=== PATIENT | female | born 1975 | race Caucasian/White ===

== ENCOUNTER 2020-03-23 20:53 | Inpatient (IN) ==
[2020-03-23] MEDS ORDERED: Acetaminophen 325 MG TABLET PO PRN (23:14)
[2020-03-23] MEDS ORDERED: Ondansetron 4 MG/2 ML VIAL IVP PRN (23:14)
[2020-03-23] MEDS ORDERED: Naloxone 0.4 MG/ML INJ IVP PRN (23:14)
[2020-03-24] MEDS ORDERED: Albuterol 2.5 MG/3 ML NEBULIZER IH PRN (00:18)
[2020-03-24 01:33] LABS: Basophils # 0.1 K/mcL (0.0-0.2); Basophils % 0.6 %; Eosinophils % 0.3 %; Hematocrit 42.7 % (35.3-44.9); Hemoglobin 13.8 g/dL (11.5-15.4); Immature Granulocytes % 0.5 % (0-4); Lymphocytes # 1.6 K/mcL (0.6-4.6); Mean Corpuscular HGB Conc 32.3 g/dL (31.6-35.5); Mean Corpuscular Hemoglobin 28.2 pg (28.0-33.3); Mean Corpuscular Volume 87.3 fL (83.0-100.0); Mean Platelet Volume 9.6 fL (9.4-12.4); Monocytes % 0.3 %; Neutrophils # 12.6 K/mcL (1.6-8.9); Platelet Count 387 K/mcL (140-400); Red Blood Count 4.89 M/mcL (3.82-4.97); Red Cell Distribution Width 12.8 % (11.5-14.5); Segmented Neutrophils % 87.3 %; White Blood Count 14.4 K/mcL (4.3-11.1)
[2020-03-24 01:44] LABS: Alanine Aminotransferase 62 Units/L (7-52); Albumin 4.3 g/dL (3.5-5.7); Albumin/Globulin Ratio 1.3 (1.1-2.2); Alkaline Phosphatase 112 Units/L (34-104); Aspartate Amino Transferase 40 Units/L (13-39); BUN/Creatinine Ratio 17 (6-26); Bilirubin,Total 0.6 mg/dL (0.3-1.0); Blood Urea Nitrogen 11 mg/dL (6-20); Calcium 9.7 mg/dL (8.6-10.3); Carbon Dioxide 18 mEq/L (23-29); Chloride 102 mEq/L (98-107); Globulin 3.3 g/dL (2.4-3.5); Glucose 213 mg/dL (70-105); Magnesium 1.6 mg/dL (1.6-2.6); Osmolality,Calculated 284 (280-300); Phosphorous 2.2 mg/dL (2.7-4.5); Potassium 3.6 mEq/L (3.5-5.1); Sodium 134 mEq/L (136-145); Total Protein 7.6 g/dL (6.4-8.9); Troponin I < 0.03 ng/mL (< 0.04); eGFR For African Americans > 60 (> 60); eGFR For Non-African Americans > 60 (> 60)
[2020-03-24 02:16] LABS: Platelet Estimate Normal (Normal); Reactive Lymphocytes Present (Not Present); Smudge Cells Present (Not Present)
[2020-03-24] MEDS: Ipratropium/Albuterol Neb 3 ML IH SCH ×2 (04:10→04:12)
[2020-03-24] MEDS: *HR* Heparin 5,000 UNIT/ML VIAL SQ SCH ×2 (05:18→17:16)
[2020-03-24] MEDS ORDERED: MethylPREDNISolone 40 MG/ML VIAL IVP SCH ×2 (06:00→18:00)
[2020-03-24] MEDS ORDERED: Azithromycin 500 MG in 0.9 % Sodium Chloride 250 ML IVPB SCH (08:00)
[2020-03-24] MEDS: cefTRIAXone 1,000 MG in Water for inj. (sterile) 10 ML IVP SCH (08:50)
[2020-03-24] MEDS ORDERED: Levalbuterol Neb 1.25 MG/3 ML ONE (10:33)
[2020-03-24] MEDS: Levalbuterol Neb 1.25 MG/3 ML IH SCH ×3 (10:49→22:53)
[2020-03-24 12:04] LABS: Adenovirus Not Detected (Not Detect); Bordetella Pertussis Not Detected (Not Detect); Chlamydophila pneumoniae Not Detected (Not Detect); Coronavirus 229E Not Detected (Not Detect); Coronavirus HKU1 Not Detected (Not Detect); Coronavirus NL63 Not Detected (Not Detect); Coronavirus OC43 Not Detected (Not Detect); Human Metapneumovirus Not Detected (Not Detect); Human Rhinovirus/Enterovirus Not Detected (Not Detect); Influenza A Subtype 2009 H1 Not Detected (Not Detect); Influenza B Not Detected (Not Detect); Mycoplasma pneumoniae Not Detected (Not Detect); Parainfluenza Virus 1 Not Detected (Not Detect); Parainfluenza Virus 2 Not Detected (Not Detect); Parainfluenza Virus 3 Not Detected (Not Detect); Parainfluenza Virus 4 Not Detected (Not Detect); Respiratory Syncytial Virus Not Detected (Not Detect); SARS-CoV-2 Not Detected (Not Detect)
[2020-03-24] MEDS: MethylPREDNISolone 40 MG/ML VIAL IVP SCH ×2 (12:54→22:31)
[2020-03-24] MEDS: Doxycycline 100 MG in 0.9 % Sodium Chloride Mini Bag 100 ML IVPB SCH (17:15)
[2020-03-25 02:50] LABS: Basophils % 0.1 %; Hematocrit 38.2 % (35.3-44.9); Hemoglobin 12.5 g/dL (11.5-15.4); Immature Granulocytes % 0.6 % (0-4); Lymphocytes # 1.9 K/mcL (0.6-4.6); Lymphocytes % 6.4 %; Mean Corpuscular HGB Conc 32.7 g/dL (31.6-35.5); Mean Corpuscular Volume 88.6 fL (83.0-100.0); Mean Platelet Volume 9.3 fL (9.4-12.4); Monocytes # 0.7 K/mcL (0.0-1.3); Monocytes % 2.4 %; Platelet Count 358 K/mcL (140-400); Red Blood Count 4.31 M/mcL (3.82-4.97); Red Cell Distribution Width 13.1 % (11.5-14.5); Segmented Neutrophils % 90.5 %
[2020-03-25 02:52] LABS: Neutrophils # 27.1 K/mcL (1.6-8.9); White Blood Count 29.9 K/mcL (4.3-11.1)
[2020-03-25 02:53] LABS: Estimated Average Glucose 126 mg/dl
[2020-03-25 03:05] LABS: Blood Urea Nitrogen 13 mg/dL (6-20); Calcium 9.5 mg/dL (8.6-10.3); Carbon Dioxide 21 mEq/L (23-29); Chloride 107 mEq/L (98-107); Glucose 145 mg/dL (70-105); Magnesium 1.8 mg/dL (1.6-2.6); Osmolality,Calculated 289 (280-300); Phosphorous 3.4 mg/dL (2.7-4.5); Sodium 138 mEq/L (136-145)
[2020-03-25 03:24] LABS: Platelet Estimate Normal (Normal)
[2020-03-25] MEDS: Levalbuterol Neb 1.25 MG/3 ML IH SCH ×4 (03:38→21:37)
[2020-03-25 04:06] LABS: BUN/Creatinine Ratio 19 (6-26); eGFR For African Americans > 60 (> 60); eGFR For Non-African Americans > 60 (> 60)
[2020-03-25] MEDS ORDERED: Doxycycline 100 MG VIAL ONE (04:52)
[2020-03-25] MEDS: Doxycycline 100 MG in 0.9 % Sodium Chloride Mini Bag 100 ML IVPB SCH ×2 (05:07→17:30)
[2020-03-25] MEDS: *HR* Heparin 5,000 UNIT/ML VIAL SQ SCH ×2 (05:08→17:36)
[2020-03-25] MEDS: MethylPREDNISolone 40 MG/ML VIAL IVP SCH ×2 (05:08→17:30)
[2020-03-25] MEDS: cefTRIAXone 1,000 MG in Water for inj. (sterile) 10 ML IVP SCH (08:58)
[2020-03-26 01:47] LABS: Basophils % 0.1 %; Hematocrit 36.9 % (35.3-44.9); Hemoglobin 11.8 g/dL (11.5-15.4); Immature Granulocytes % 1.1 % (0-4); Lymphocytes # 1.8 K/mcL (0.6-4.6); Lymphocytes % 7.6 %; Mean Corpuscular Hemoglobin 28.4 pg (28.0-33.3); Mean Corpuscular Volume 88.9 fL (83.0-100.0); Mean Platelet Volume 9.8 fL (9.4-12.4); Monocytes # 0.7 K/mcL (0.0-1.3); Monocytes % 2.9 %; Neutrophils # 20.9 K/mcL (1.6-8.9); Platelet Count 359 K/mcL (140-400); Red Blood Count 4.15 M/mcL (3.82-4.97); Red Cell Distribution Width 13.1 % (11.5-14.5); Segmented Neutrophils % 88.3 %; White Blood Count 23.7 K/mcL (4.3-11.1)
[2020-03-26 02:07] LABS: Alanine Aminotransferase 43 Units/L (7-52); Albumin 3.8 g/dL (3.5-5.7); Albumin/Globulin Ratio 1.3 (1.1-2.2); Alkaline Phosphatase 90 Units/L (34-104); Aspartate Amino Transferase 25 Units/L (13-39); BUN/Creatinine Ratio 29 (6-26); Bilirubin,Total 0.3 mg/dL (0.3-1.0); Blood Urea Nitrogen 20 mg/dL (6-20); Calcium 9.1 mg/dL (8.6-10.3); Carbon Dioxide 22 mEq/L (23-29); Chloride 106 mEq/L (98-107); Globulin 2.9 g/dL (2.4-3.5); Glucose 131 mg/dL (70-105); Magnesium 1.7 mg/dL (1.6-2.6); Osmolality,Calculated 292 (280-300); Phosphorous 3.6 mg/dL (2.7-4.5); Potassium 4.1 mEq/L (3.5-5.1); Sodium 139 mEq/L (136-145); Total Protein 6.7 g/dL (6.4-8.9); eGFR For African Americans > 60 (> 60); eGFR For Non-African Americans > 60 (> 60)
[2020-03-26] MEDS: Levalbuterol Neb 1.25 MG/3 ML IH SCH ×2 (03:29→10:11)
[2020-03-26] MEDS: Doxycycline 100 MG in 0.9 % Sodium Chloride Mini Bag 100 ML IVPB SCH (05:32)
[2020-03-26] MEDS: *HR* Heparin 5,000 UNIT/ML VIAL SQ SCH (05:32)
[2020-03-26] MEDS: MethylPREDNISolone 40 MG/ML VIAL IVP SCH (05:32)
[2020-03-26 10:56] VITALS: BP 124/74
== END 2020-03-26 14:15 | disposition home or self-care (01) | DRG 202 ==
LOC: 3BNU → SUATTDRO 22:12
PROVIDERS: ADMIT Internal Medicine; ATTEND Internal Medicine

== ENCOUNTER 2020-08-31 19:16 | Inpatient (IN) ==
[2020-08-31] MEDS ORDERED: Isovue-370 500 ML BOTTLE IVP ONE (20:14)
[2020-09-01 01:11] LABS: Hematocrit 40.7 % (35.3-44.9); Hemoglobin 13.1 g/dL (11.5-15.4); Mean Corpuscular HGB Conc 32.2 g/dL (31.6-35.5); Mean Corpuscular Hemoglobin 26.3 pg (28.0-33.3); Mean Corpuscular Volume 81.7 fL (83.0-100.0); Mean Platelet Volume 8.9 fL (9.4-12.4); Platelet Count 349 K/mcL (140-400); Red Blood Count 4.98 M/mcL (3.82-4.97); Red Cell Distribution Width 13.5 % (11.5-14.5); White Blood Count 11.3 K/mcL (4.3-11.1)
[2020-09-01] MEDS ORDERED: Naloxone 0.4 MG/ML INJ IVP PRN (01:17)
[2020-09-01] MEDS ORDERED: Acetaminophen 325 MG TABLET PO PRN (01:17)
[2020-09-01] MEDS ORDERED: Levalbuterol Neb 1.25 MG/3 ML ONE (01:22)
[2020-09-01 01:25] LABS: Estimated Average Glucose 123 mg/dl; Hemoglobin A1C 5.9 %
[2020-09-01] MEDS: Levalbuterol Neb 1.25 MG/3 ML IH SCH ×7 (01:25→23:17)
[2020-09-01 01:30] LABS: BUN/Creatinine Ratio 13 (6-26); Blood Urea Nitrogen 9 mg/dL (6-20); Calcium 9.4 mg/dL (8.6-10.3); Carbon Dioxide 18 mEq/L (23-29); Chloride 105 mEq/L (98-107); Chol/HDL Ratio 3.8 (0-4.9); Cholesterol 214 mg/dL (< 200); Glucose 168 mg/dL (70-105); HDL Cholesterol 57 mg/dL (40-59); Iron 31 mcg/dL (50-170); LDL Cholesterol,Calculated 144 mg/dL (< 100); Osmolality,Calculated 283 (280-300); Sodium 135 mEq/L (136-145); Triglycerides 67 mg/dL (< 150); Troponin I < 0.03 ng/mL (< 0.04); eGFR For African Americans > 60 (> 60); eGFR For Non-African Americans > 60 (> 60)
[2020-09-01] MEDS ORDERED: Perflutren Lipid Microsphere 1.3 ML in 0.9 % Sodium Chloride 8.7 ML IVP PRN (01:55)
[2020-09-01] MEDS ORDERED: Morphine Sulfate 2 MG/ML SYRINGE IVP PRN (01:56)
[2020-09-01] MEDS ORDERED: Nitroglycerin 0.4 MG TAB.SUBL SL PRN (01:56)
[2020-09-01 02:06] LABS: Ferritin < 8 ng/mL (10-120)
[2020-09-01] MEDS: Azithromycin 500 MG in 0.9 % Sodium Chloride 250 ML IVPB SCH (02:11)
[2020-09-01] MEDS ORDERED: D5% in Water 1,000 ML IVC PRN (02:16)
[2020-09-01] MEDS ORDERED: Dextrose Gel 15 GM/37.5 ML TUBE PO PRN ×2 (02:16)
[2020-09-01] MEDS ORDERED: *HR* Dextrose 50 % in Water (Vial) 50 ML VIAL IVP PRN (02:16)
[2020-09-01 02:23] LABS: Folate 22.1 ng/mL (3.0-16.0)
[2020-09-01] MEDS ORDERED: Aspirin Enteric Coated 325 MG Tablet PO ONE (02:27)
[2020-09-01 02:37] LABS: % Iron Saturation 5 % (15-50); Transferrin 419 mg/dL (203-362)
[2020-09-01] MEDS: *HR* Heparin 5,000 UNIT/ML VIAL SQ SCH ×3 (05:49→19:48)
[2020-09-01] MEDS ORDERED: Furosemide 20 MG/2 ML VIAL IVP ONE (07:00)
[2020-09-01] MEDS ORDERED: methylPREDNISolone 125 MG/2 ML VIAL IVP SCH (08:00)
[2020-09-01] MEDS: Insulin LISPRO 300 UNITS/3 ML VIAL SUBQ SCH ×4 (08:06→21:04)
[2020-09-01] MEDS: Venlafaxine XR (24 HR) 75 MG CAP.ER.24H PO SCH (08:23)
[2020-09-01] MEDS: Cholecalciferol (D-3) 1,000 UNIT (25MCG) TABLET PO SCH (08:23)
[2020-09-01] MEDS ORDERED: Iron Sucrose Complex 400 MG in 0.9 % Sodium Chloride 250 ML IVPB ONE (10:00)
[2020-09-01] MEDS ORDERED: traZODone 50 MG TABLET PO PRN (13:34)
[2020-09-01] MEDS: Venlafaxine XR (24 HR) 150 MG CAP.ER.24H PO SCH (13:56)
[2020-09-01] MEDS: Budesonide/Formoterol 160/4.5 1 PUFF INH IH SCH (19:28)
[2020-09-01] MEDS: methylPREDNISolone 125 MG/2 ML VIAL IVP SCH (19:45)
[2020-09-02] MEDS: Levalbuterol Neb 1.25 MG/3 ML IH SCH ×6 (02:57→23:39)
[2020-09-02] MEDS: Azithromycin 500 MG in 0.9 % Sodium Chloride 250 ML IVPB SCH (04:13)
[2020-09-02 05:42] LABS: Basophils % 0.1 %; Hematocrit 38.1 % (35.3-44.9)
[2020-09-02 05:44] LABS: Hemoglobin 11.7 g/dL (11.5-15.4); Immature Granulocytes % 0.7 % (0-4); Lymphocytes # 1.4 K/mcL (0.6-4.6); Lymphocytes % 4.9 %; Mean Corpuscular HGB Conc 30.7 g/dL (31.6-35.5); Mean Corpuscular Hemoglobin 25.8 pg (28.0-33.3); Mean Corpuscular Volume 84.1 fL (83.0-100.0); Mean Platelet Volume 9.5 fL (9.4-12.4); Monocytes # 1.1 K/mcL (0.0-1.3); Monocytes % 3.8 %; Neutrophils # 25.1 K/mcL (1.6-8.9); Platelet Count 369 K/mcL (140-400); Red Blood Count 4.53 M/mcL (3.82-4.97); Segmented Neutrophils % 90.5 %; White Blood Count 27.7 K/mcL (4.3-11.1)
[2020-09-02] MEDS: *HR* Heparin 5,000 UNIT/ML VIAL SQ SCH ×3 (05:45→21:15)
[2020-09-02 06:00] LABS: Magnesium 2.1 mg/dL (1.6-2.6); Phosphorous 3.5 mg/dL (2.7-4.5)
[2020-09-02 06:03] LABS: BUN/Creatinine Ratio 20 (6-26); Blood Urea Nitrogen 18 mg/dL (6-20); Calcium 9.1 mg/dL (8.6-10.3); Carbon Dioxide 22 mEq/L (23-29); Chloride 104 mEq/L (98-107); Glucose 202 mg/dL (70-105); Osmolality,Calculated 290 (280-300); Potassium 4.3 mEq/L (3.5-5.1); Sodium 136 mEq/L (136-145); eGFR For African Americans > 60 (> 60); eGFR For Non-African Americans > 60 (> 60)
[2020-09-02 06:22] LABS: Platelet Estimate Normal (Normal)
[2020-09-02] MEDS: Budesonide/Formoterol 160/4.5 1 PUFF INH IH SCH ×2 (07:44→19:47)
[2020-09-02] MEDS: Insulin LISPRO 300 UNITS/3 ML VIAL SUBQ SCH ×4 (08:48→21:07)
[2020-09-02] MEDS: Aspirin Enteric Coated 81 MG Tablet PO SCH (08:48)
[2020-09-02] MEDS: Venlafaxine XR (24 HR) 75 MG CAP.ER.24H PO SCH (08:48)
[2020-09-02] MEDS: Cholecalciferol (D-3) 1,000 UNIT (25MCG) TABLET PO SCH (08:48)
[2020-09-02] MEDS: methylPREDNISolone 125 MG/2 ML VIAL IVP SCH (08:49)
[2020-09-02] MEDS: Venlafaxine XR (24 HR) 150 MG CAP.ER.24H PO SCH (08:52)
[2020-09-03 01:16] LABS: Basophils % 0.1 %
[2020-09-03 01:18] LABS: Hematocrit 36.3 % (35.3-44.9); Hemoglobin 11.5 g/dL (11.5-15.4); Immature Granulocytes % 0.6 % (0-4); Lymphocytes % 10.7 %; Mean Corpuscular HGB Conc 31.7 g/dL (31.6-35.5); Mean Corpuscular Hemoglobin 26.3 pg (28.0-33.3); Mean Corpuscular Volume 82.9 fL (83.0-100.0); Mean Platelet Volume 9.6 fL (9.4-12.4); Monocytes # 1.4 K/mcL (0.0-1.3); Monocytes % 5.4 %; Neutrophils # 21.3 K/mcL (1.6-8.9); Platelet Count 365 K/mcL (140-400); Red Blood Count 4.38 M/mcL (3.82-4.97); Red Cell Distribution Width 14.2 % (11.5-14.5); Segmented Neutrophils % 83.2 %; White Blood Count 25.6 K/mcL (4.3-11.1)
[2020-09-03 01:37] LABS: BUN/Creatinine Ratio 25 (6-26); Blood Urea Nitrogen 20 mg/dL (6-20); Calcium 8.9 mg/dL (8.6-10.3); Carbon Dioxide 23 mEq/L (23-29); Chloride 105 mEq/L (98-107); Glucose 117 mg/dL (70-105); Magnesium 1.9 mg/dL (1.6-2.6); Osmolality,Calculated 288 (280-300); Phosphorous 2.7 mg/dL (2.7-4.5); Sodium 137 mEq/L (136-145); eGFR For African Americans > 60 (> 60); eGFR For Non-African Americans > 60 (> 60)
[2020-09-03 01:53] LABS: Lymphocytes # 2.7 K/mcL (0.6-4.6)
[2020-09-03] MEDS: Levalbuterol Neb 1.25 MG/3 ML IH SCH ×3 (04:13→11:27)
[2020-09-03] MEDS: Azithromycin 500 MG in 0.9 % Sodium Chloride 250 ML IVPB SCH (05:56)
[2020-09-03] MEDS: *HR* Heparin 5,000 UNIT/ML VIAL SQ SCH (05:58)
[2020-09-03] MEDS: Insulin LISPRO 300 UNITS/3 ML VIAL SUBQ SCH (07:05)
[2020-09-03] MEDS: Cholecalciferol (D-3) 1,000 UNIT (25MCG) TABLET PO SCH (07:24)
[2020-09-03] MEDS: Venlafaxine XR (24 HR) 75 MG CAP.ER.24H PO SCH (07:25)
[2020-09-03] MEDS: Aspirin Enteric Coated 81 MG Tablet PO SCH (07:25)
[2020-09-03] MEDS: Budesonide/Formoterol 160/4.5 1 PUFF INH IH SCH (07:28)
[2020-09-03] MEDS: Venlafaxine XR (24 HR) 150 MG CAP.ER.24H PO SCH (07:29)
[2020-09-03 07:35] VITALS: BP 128/78; PULSE 77; TEMP 97.7
[2020-09-03] MEDS ORDERED: predniSONE 20 MG TABLET PO SCH (09:00)
[2020-09-03 10:02] VITALS: O2SAT 94
== END 2020-09-03 12:26 | disposition home or self-care (01) | DRG 189 ==
LOC: 3BNU 19:16 → EMEROOARM 19:16 → SUATTDRO 23:29 → 3BNU 09-01 00:18
PROVIDERS: ADMIT Student in an Organized Health Care Education/Training Program; ATTEND Internal Medicine